=== PATIENT | male | born 1995 | race Native Hawaiian/Other Pacific Islander ===

== ENCOUNTER 2019-09-07 10:56 | Emergency (ER) | payer OTHER ==
[~2019-09-07] VITALS: Ht 182.9 cm; Wt 99.8 kg
[2019-09-07 12:10] VITALS: BP 124/55; TEMP 98.2
== END 2019-09-07 12:10 | disposition home or self-care (01) ==
LOC: ED 10:56
PROC: 0HQEXZZ Repair Left Lower Arm Skin, External Approach (ICD-10-PCS; principal; 2019-09-07)
DX: S61.512A Laceration without foreign body of left wrist, initial encounter (principal); S63.592A Other specified sprain of left wrist, initial encounter; W25.XXXA Contact with sharp glass, initial encounter; Y92.89 Other specified places as the place of occurrence of the external cause
CPT/HCPCS: 99283; J7040

== ENCOUNTER 2019-12-20 12:45 | Emergency (ER) | payer BC ==
[~2019-12-20] VITALS: Ht 185.4 cm; Wt 99.8 kg
[2019-12-20 12:50] VITALS: BP 133/77; TEMP 98.5
== END 2019-12-20 13:43 | disposition home or self-care (01) ==
LOC: ED 12:45
DX: M75.51 Bursitis of right shoulder (principal)
CPT/HCPCS: 99282